=== PATIENT | female | born 1990 | race Caucasian/White ===

== ENCOUNTER 2018-04-09 07:57 | Emergency (ER) | payer OTHER ==
[~2018-04-09] VITALS: Ht 172.7 cm; Wt 84.8 kg
[2018-04-09 08:16] VITALS: Ht 172.7 cm; Wt 84.8 kg
[2018-04-09 09:56] LABS: BASOPHIL % 0.4 % (0-2); PLATELET COUNT 355 x10^3mcL (130-400); RED CELL DISTRIBUTION WIDTH 12.3 % (11.5-14.5)
[2018-04-09 09:59] LABS: CALCIUM 9.5 mg/dL (8.5-10.1); CARBON DIOXIDE 27.4 mmol/L (21-32); CHLORIDE SERUM 103 mmol/L (98-107); CREATININE SERUM 0.8 mg/dL (0.6-1.0); GLUCOSE SERUM 93 mg/dL (74-106); POTASSIUM SERUM 3.8 mmol/L (3.5-5.1); SODIUM SERUM 139 mmol/L (136-145)
[2018-04-09 10:04] LABS: ALKALINE PHOSPHATASE 88 U/L (46-116); ALT/SGPT 35 U/L (14-59); AMYLASE 67 U/L (25-115); AST/SGOT 27 U/L (15-37); BILIRUBIN TOTAL 0.7 mg/dL (0.20-1.00); LIPASE 103 IU/L (73-393); MAGNESIUM 1.9 mg/dL (1.8-2.4); TOTAL PROTEIN, SERUM 8.1 g/dL (6.4-8.2)
[2018-04-09 10:06] LABS: microscopic required? YES; urine erythrocyte 1+ (NEGATIVE)
[2018-04-09 10:18] LABS: AMPHETAMINE QUAL UR NONE DETECTED (See below)
[2018-04-09 12:41] VITALS: BP 106/57
== END 2018-04-09 12:41 | disposition home or self-care (01) ==
LOC: ED 07:57
PROVIDERS: Emergency Medicine
DX: F10.10 Alcohol abuse, uncomplicated (principal); Z90.49 Acquired absence of other specified parts of digestive tract
CPT/HCPCS: 83880; G0480; J2405; J3490

== ENCOUNTER 2018-04-18 18:45 | Emergency (ER) | payer OTHER ==
[~2018-04-18] VITALS: Ht 172.7 cm; Wt 84.8 kg
[2018-04-18 18:47] VITALS: Ht 172.7 cm; Wt 84.8 kg
[2018-04-18 21:05] VITALS: BP 115/50
== END 2018-04-18 21:04 | disposition home or self-care (01) ==
LOC: ED 18:45
DX: R10.13 Epigastric pain (principal); R11.2 Nausea with vomiting, unspecified; Z90.49 Acquired absence of other specified parts of digestive tract
CPT/HCPCS: J1630; J1885; J3010; Q0162

== ENCOUNTER 2018-07-14 10:22 | Emergency (ER) | payer OTHER ==
[2018-07-14 10:33] VITALS: Ht 172.7 cm
[2018-07-14 13:11] LABS: BASOPHIL % 0.4 % (0-2); PLATELET COUNT 334 x10^3mcL (130-400); RED CELL DISTRIBUTION WIDTH 13.1 % (11.5-14.5)
[2018-07-14 13:19] LABS: AMPHETAMINE QUAL UR NONE DETECTED (See below)
[2018-07-14 13:35] LABS: CARBON DIOXIDE 27.3 mmol/L (21-32); CHLORIDE SERUM 101 mmol/L (98-107); CREATININE SERUM 0.7 mg/dL (0.6-1.0); GFR1 > 60 mL/min; GLUCOSE SERUM 106 mg/dL (74-106); SODIUM SERUM 136 mmol/L (136-145)
[2018-07-14 13:39] LABS: ALKALINE PHOSPHATASE 75 U/L (46-116); ALT/SGPT 28 U/L (14-59); AST/SGOT 26 U/L (15-37); BILIRUBIN TOTAL 0.5 mg/dL (0.20-1.00); TOTAL PROTEIN, SERUM 7.8 g/dL (6.4-8.2)
[2018-07-14 13:43] LABS: POTASSIUM SERUM 3.9 mmol/L (3.5-5.1)
[2018-07-14 14:08] VITALS: BP 116/68
== END 2018-07-14 15:22 | disposition home or self-care (01) ==
LOC: ED 10:22
PROVIDERS: Emergency Medicine
DX: R42 Dizziness and giddiness (principal); R07.89 Other chest pain; R21 Rash and other nonspecific skin eruption; Z90.89 Acquired absence of other organs
CPT/HCPCS: 36415; Q0092

== ENCOUNTER 2018-12-31 09:13 | Emergency (ER) | payer MEDICAID ==
[~2018-12-31] VITALS: Ht 175.3 cm; Wt 83.5 kg
[2018-12-31 09:29] VITALS: Ht 175.3 cm; Wt 83.5 kg
== END 2018-12-31 11:46 | disposition home or self-care (01) ==
LOC: ED 09:13
DX: L29.9 Pruritus, unspecified (principal); T50.995A Adverse effect of other drugs, medicaments and biological substances, initial encounter; Y92.89 Other specified places as the place of occurrence of the external cause
CPT/HCPCS: J1100; Q0163

== ENCOUNTER 2019-10-11 21:41 | Emergency (ER) | payer OTHER ==
[~2019-10-11] VITALS: Ht 170.2 cm; Wt 84.4 kg
[2019-10-11 21:47] VITALS: Ht 170.2 cm; Wt 84.4 kg
[2019-10-12 00:37] LABS: UA SPECIFIC GRAVITY <=1.005 (1.005-1.035); microscopic required? YES; urine erythrocyte 3+ (NEGATIVE)
[2019-10-12 01:20] VITALS: BP 114/76
== END 2019-10-12 01:20 | disposition home or self-care (01) ==
LOC: ED 21:41
PROVIDERS: Emergency Medicine
DX: N39.0 Urinary tract infection, site not specified (principal); Z90.89 Acquired absence of other organs; Z88.1 Allergy status to other antibiotic agents; Z88.2 Allergy status to sulfonamides
CPT/HCPCS: J1885

== ENCOUNTER 2019-12-25 13:03 | Emergency (ER) | payer OTHER ==
[~2019-12-25] VITALS: Ht 170.2 cm; Wt 82.6 kg
[2019-12-25 13:07] VITALS: Ht 170.2 cm; Wt 82.6 kg
[2019-12-25 14:36] LABS: BASOPHIL % 0.2 % (0-2); PLATELET COUNT 341 x10^3mcL (130-400); RED CELL DISTRIBUTION WIDTH 12.6 % (11.5-14.5)
[2019-12-25 14:54] LABS: ALBUMIN 3.9 g/dL (3.4-5.0); ALKALINE PHOSPHATASE 82 U/L (46-116); ALT/SGPT 27 U/L (14-59); AST/SGOT 19 U/L (15-37); BILIRUBIN TOTAL 0.3 mg/dL (0.20-1.00); CARBON DIOXIDE 29.8 mmol/L (21-32); CHLORIDE SERUM 102 mmol/L (98-107); CREATININE SERUM 0.8 mg/dL (0.6-1.0); GFR1 > 60 mL/min; GLUCOSE SERUM 125 mg/dL (74-106); LIPASE 86 IU/L (73-393); POTASSIUM SERUM 3.9 mmol/L (3.5-5.1); SODIUM SERUM 139 mmol/L (136-145); TOTAL PROTEIN, SERUM 7.7 g/dL (6.4-8.2)
[2019-12-25 14:55] LABS: AMPHETAMINE QUAL UR NONE DETECTED (See below)
[2019-12-25 15:01] LABS: FREE T4 1.01 ng/dL (0.76-1.46); FREE THYROXINE INDEX 2.7 ug/dL (1.4-4.5); T4(THYROXINE) 7.8 ug/dL (4.7-13.3)
[2019-12-25 15:06] LABS: CALCIUM 9.3 mg/dL (8.5-10.1)
[2019-12-25 15:18] LABS: T3 TOTAL 1.29 ng/mL
[2019-12-25 16:10] VITALS: BP 115/77
== END 2019-12-25 16:10 | disposition home or self-care (01) ==
LOC: ED 13:03
PROVIDERS: Emergency Medicine
DX: F41.9 Anxiety disorder, unspecified (principal); R07.89 Other chest pain; K21.9 Gastro-esophageal reflux disease without esophagitis; Z88.2 Allergy status to sulfonamides; Z88.1 Allergy status to other antibiotic agents
CPT/HCPCS: 36415; 84439; Q0162